=== PATIENT | male | born 1965 | race Two or more races ===

== ENCOUNTER 2023-09-11 09:02 | Inpatient (IN) | payer OTHER ==
[2023-09-10] MEDS: hydrALAZINE HCL 20 MG/ML VL IV ONE (14:20)
[2023-09-11] VITALS (14 sets, daily range): BP systolic 125–171; BP diastolic 75–119; PULSE 68–95; RESP 16–20; TEMP 97.7–98.7; O2SAT 94–100
[~2023-09-11] VITALS: Ht 177.8 cm; Wt 119.0 kg
[2023-09-11 09:51] LABS: Basophils # (auto) 0 10 ^3/uL (0-0.2); Basophils % (auto) 0.5 % (0.0-2.0); Eosinophils # (auto) 0.4 10 ^3/uL (0-0.8); Hematocrit 41.3 % (41.0-53.0); Hemoglobin 13.7 g/dL (13.5-17.5); Lymphocytes # (auto) 1.4 10 ^3/uL (0.4-5.4); Lymphocytes % (auto) 18.4 % (10.0-50.0); Mean Corpuscular Hemoglobin 31.7 pg (28.0-32.0); Mean Corpuscular Hgb Conc. 33.2 g/dL (32.0-36.0); Mean Corpuscular Volume 95.4 fL (80.0-100.0); Monocytes # (auto) 0.7 10 ^3/uL (0-1.3); Monocytes % (auto) 9.7 % (0.0-12.0); Neutrophils # (auto) 4.8 10 ^3/uL (1.6-8.6); Neutrophils % (auto) 65.4 % (37.0-80.0); Red Blood Cells 4.33 10^6/uL (4.5-5.90); Red Cell Distribution Width 12.9 % (11.8-14.3); White Blood Cell 7.4 10^3/uL (4.4-10.8)
[2023-09-11] MEDS: ASPirin-EC 325mg tab PO ONE (09:59)
[2023-09-11 10:18] LABS: Alanine Aminotransferase 31 U/L (7-40); Albumin 4.2 g/dL (3.2-4.8); Alkaline Phosphatase 146 U/L (46-116); Anion Gap 7 (5-15); Aspartate Aminotransferase 24 U/L (13-40); BUN/Creatinine Ratio 5.5 (10.0-20.0); Blood Urea Nitrogen 5 mg/dL (9-23); Calcium 9.7 mg/dL (8.5-10.1); Carbon Dioxide 27 mmol/L (20-30); Chloride 104 mmol/L (98-107); Glucose 151 mg/dL (74-106); Potassium 3.6 mmol/L (3.5-5.1); Sodium 138 mmol/L (136-145); Total Protein 7.4 g/dL (5.7-8.2)
[2023-09-11] MEDS: VERAPAMIL 2.5MG/ML INJ 2ML VIAL IV ONE (10:19)
[2023-09-11] MEDS: MIDAZOLAM HCL 2MG/2ML 2ml VIAL (1mg/ml) ONE (10:19)
[2023-09-11] MEDS: fentaNYL CITRATE 100 MCG/2 ML VL ONE (10:19)
[2023-09-11] MEDS: ANGIOMAX 250 MG VIAL IV ONE (10:19)
[2023-09-11] MEDS: HEPARIN SODIUM (PORCINE) 5000 UNITS/ML 1ML VIAL ONE ×2 (10:19→10:29)
[2023-09-11] MEDS: LIDOCAINE 2%HCL (LOCAL ANESTH.) INJ 20ML MDV ONE (10:20)
[2023-09-11] MEDS: IODIXANOL 320MG/ML 100ML BTL IV ONE (10:20)
[2023-09-11] MEDS: SODIUM CHL 0.9% 0 ML ONE (10:20)
[2023-09-11] MEDS: NITROGLYCERIN 2% OINT 1GM PKG TD ONE (10:30)
[2023-09-11] MEDS: HEPARIN SODIUM (PORCINE) 5000 UNITS/ML 1ML VIAL IV ONE (10:30)
[2023-09-11 10:45] LABS: INR 0.98 (0.9-1.15); Prothrombin Time 10.3 sec (9.3-11.8)
[2023-09-11] MEDS ORDERED: hydrALAZINE HCL 20 MG/ML VL IV PRN (10:45)
[2023-09-11] MEDS ORDERED: ONDANSETRON HCL 4 MG/2 ML VIAL IV PRN (10:45)
[2023-09-11] MEDS ORDERED: MORPHINE SULFATE 4 MG/ML SYR/VIAL IV PRN (10:45)
[2023-09-11] MEDS ORDERED: NITROGLYCERIN 0.4 MG SL TAB SL PRN (10:45)
[2023-09-11 10:54] LABS: Bilirubin, Total 0.6 mg/dL (0.2-1.0)
[2023-09-11] MEDS: SODIUM CHLORIDE 0.9% 1,000 ML IV SCH (11:10)
[2023-09-11 12:01] LABS: Triglycerides 106 mg/dL (< 150)
[2023-09-11 12:02] LABS: LDL Cholesterol 133 mg/dL (< 100)
[2023-09-11 12:03] LABS: Cholesterol 178 mg/dL (< 200); HDL Cholesterol 34 mg/dL (40-59)
[2023-09-11] MEDS: hydrALAZINE HCL 20 MG/ML VL ONE (14:17)
[2023-09-11] MEDS: SODIUM CHLOR 0.9% PF (SALINE LOCK) 10ML VIAL/SYR IV SCH (20:47)
[2023-09-11] MEDS: ATORVASTATIN 20 MG TAB PO SCH (20:47)
[2023-09-12] VITALS (7 sets, daily range): BP systolic 119–154; BP diastolic 67–98; PULSE 85–106; RESP 18–21; TEMP 97.6–99.7; O2SAT 96–98
[2023-09-12 05:23] LABS: Basophils # (auto) 0.1 10 ^3/uL (0-0.2); Basophils % (auto) 1.1 % (0.0-2.0); Eosinophils # (auto) 0.4 10 ^3/uL (0-0.8); Eosinophils % (auto) 3.9 % (0.0-7.0); Hematocrit 40.1 % (41.0-53.0); Hemoglobin 13.7 g/dL (13.5-17.5); Lymphocytes % (auto) 18.8 % (10.0-50.0); Mean Corpuscular Hemoglobin 32.4 pg (28.0-32.0); Mean Corpuscular Hgb Conc. 34.1 g/dL (32.0-36.0); Mean Corpuscular Volume 94.9 fL (80.0-100.0); Monocytes % (auto) 9.2 % (0.0-12.0); Nucleated Red Blood Cells % 0.3 %; Red Blood Cells 4.23 10^6/uL (4.5-5.90); White Blood Cell 10.5 10^3/uL (4.4-10.8)
[2023-09-12 05:41] LABS: Alanine Aminotransferase 39 U/L (7-40); Albumin 4.1 g/dL (3.2-4.8); Alkaline Phosphatase 140 U/L (46-116); Anion Gap 8 (5-15); Aspartate Aminotransferase 121 U/L (13-40); BUN/Creatinine Ratio 9.1 (10.0-20.0); Blood Urea Nitrogen 7 mg/dL (9-23); Calcium 9.4 mg/dL (8.7-10.4); Carbon Dioxide 23 mmol/L (20-30); Chloride 104 mmol/L (98-107); Glucose 142 mg/dL (74-106); Potassium 3.9 mmol/L (3.5-5.1); Sodium 135 mmol/L (136-145)
[2023-09-12 05:42] LABS: Bilirubin, Total 0.8 mg/dL (0.2-1.0); Total Protein 7.2 g/dL (5.7-8.2)
[2023-09-12 06:24] LABS: Urine Bacteria FEW /hpf (None Seen); Urine Blood Negative /uL (Negative); Urine Clarity Clear (Clear); Urine Color Yellow (Yellow); Urine Mucus FEW (None Seen); Urine Protein, UAD Negative (Negative); Urine Specific Gravity 1.018 (1.001-1.035); Urine Urobilinogen Normal (Negative); Urine WBC 1 /hpf (0 - 3); Urine pH 7.5 (5.0-8.0)
[2023-09-12 06:35] LABS: Amphetamine Screen, Urine Pos (NEGATIVE)
[2023-09-12 06:36] LABS: Barbiturate Scree,Urine Neg (NEGATIVE); Benzodiazephine Screen, Urine Neg (NEGATIVE); Cannabinoid Screen, Urine Neg (NEGATIVE); Cocaine Screen, Urine Neg (NEGATIVE); Opiate Scree,Urine Neg (NEGATIVE); Phencyclidine Screen, Urine Neg (NEGATIVE)
[2023-09-12] MEDS: amLODIPine BESYLATE 5 MG TAB PO SCH (09:41)
[2023-09-12] MEDS: ASPirin 81 mg TAB PO SCH (12:39)
[2023-09-12] MEDS: ACETAMINOPHEN 325 MG TAB PO PRN (12:39)
[2023-09-12] MEDS: DOCUSATE SOD 100 MG CAP PO SCH (12:40)
[2023-09-12] MEDS: guaiFENesin 200 MG/10 ML UD GT PRN (15:34)
[2023-09-13 05:00] VITALS: BP 95/58; PULSE 105; RESP 19; TEMP 99.6; O2SAT 93
[2023-09-13 08:00] VITALS: PULSE 104; RESP 18; O2SAT 93
[2023-09-13 09:00] VITALS: BP 113/72; PULSE 104; RESP 18; TEMP 99; O2SAT 93
[2023-09-13 13:00] VITALS: BP 102/62; PULSE 98; RESP 18; TEMP 98.4; O2SAT 99
[2023-09-13] MEDS ORDERED: AML5T PO (13:34)
[2023-09-13] MEDS ORDERED: ASPI-325 PO (13:34)
[2023-09-13] MEDS ORDERED: ATOR20TA50 PO (13:34)
[2023-09-13 14:52] VITALS: BP 147/68
== END 2023-09-13 15:30 | disposition home or self-care (01) | DRG 280 ==
LOC: ER 09:02 → EDBD 09:02 → TELE 10:40 → ER 10:43 → TELE-CENTR 14:35
PROVIDERS: ADMIT Nurse Practitioner Family; ATTEND Internal Medicine
PROC: 4A023N7 Measurement of Cardiac Sampling and Pressure, Left Heart, Percutaneous Approach (ICD-10-PCS; principal; 2023-09-11)
PROC: B211YZZ Fluoroscopy of Multiple Coronary Arteries using Other Contrast (ICD-10-PCS; 2023-09-11)
DX: I21.19 ST elevation (STEMI) myocardial infarction involving other coronary artery of inferior wall (principal); I50.31 Acute diastolic (congestive) heart failure; I16.0 Hypertensive urgency; E66.9 Obesity, unspecified; F10.10 Alcohol abuse, uncomplicated; I25.119 Atherosclerotic heart disease of native coronary artery with unspecified angina pectoris; Z68.37 Body mass index [BMI] 37.0-37.9, adult; F15.10 Other stimulant abuse, uncomplicated; I25.10 Atherosclerotic heart disease of native coronary artery without angina pectoris; E78.5 Hyperlipidemia, unspecified; I11.0 Hypertensive heart disease with heart failure; R73.03 Prediabetes; Z82.49 Family history of ischemic heart disease and other diseases of the circulatory system
CPT/HCPCS: 36415; 71045; 80053; 80061; 80307; 80320; 81001; 83036; 83735; 83880; 84443; 84484; 85025; 85610; 93005; 93306; 93970; 96374; 99152; 99291; G0378; J2250; Q9967